=== PATIENT | male | born 1955 | race African-American/Black ===

== ENCOUNTER → 2016-03-19 09:11 | Outpatient (CLI) | payer MEDICAID ==
[2015-02-27 07:25] VITALS: BMI 19.8
== END | disposition home or self-care (01) ==
LOC: D.RAD 09:11
DX: R63.4 Abnormal weight loss (principal); R10.9 Unspecified abdominal pain; R19.7 Diarrhea, unspecified; R58 Hemorrhage, not elsewhere classified